=== PATIENT | female | born 1985 | race Caucasian/White ===

== ENCOUNTER 2016-09-09 06:31 | Emergency (ER) | payer BC, OTHER ==
[2016-09-09] MEDS ORDERED: Acetaminophen-Codeine 300-30mg TAB PO STA (06:55)
[2016-09-09] MEDS ORDERED: IBUPROFEN 600 MG TAB PO STA (06:56)
[2016-09-09] MEDS ORDERED: DEXAMETHASONE 4 MG TAB PO STA (07:28)
[2016-09-09] MEDS ORDERED: IPRATROPIUM-ALBUTEROL 3 ML NEB INHALATION STA (07:28)
[2016-09-09] MEDS ORDERED: cefTRIAXone 2,000 MG in SODIUM CHLORIDE 0.9% 100 ML IVPB STA (07:31)
[2016-09-09] MEDS ORDERED: HYDROmorphone 1 MG/ML 1 ML SYRINGE IVP STA (07:31)
[2016-09-09] MEDS ORDERED: ONDANSETRON 4 MG/2 ML VIAL IVP STA (07:31)
--- NOTE | 2016-09-09 07:40 | ED ---
URI HPI - General Chief Complaint: Upper Respiratory Infection Stated Complaint: SOB Time Seen by Provider: 09/09/16 07:17 Source: patient Mode of arrival: ambulatory Limitations: no limitations - History of Present Illness Initial Comments: [age] years old female feels like her lungs are burning for the last 4 days she has a fever she has a chills it hurts to take a deep breath has been coughing up phlegm. Otherwise pretty healthy no history of asthma or history of COPD and her headaches no neck stiffness does feel short winded but the last few days no abdominal pain no frequency urgency dysuria - Related Data Home Medications Medication Instructions Recorded Confirmed Multivitamins, Thera [Multivitamin 1 tab PO DAILY 09/09/16 09/09/16 (formulary)] Previous Rx's Medication Instructions Recorded Azithromycin [Zithromax Tri-Ender] 500 mg PO DAILY #3 tab 09/09/16 Oseltamivir [Tamiflu] 75 mg PO Q12HR #10 cap 09/09/16 oxyCODONE HCL/ACETAMINOPHEN 1 tab PO Q6HR PRN #12 tab 09/09/16 [Percocet 5-325 mg] predniSONE 50 mg PO DAILY #5 tab 09/09/16 Allergies Allergy/AdvReac Type Severity Reaction Status Date / Time No Known Allergies Allergy Verified 09/09/16 07:44 Review of Systems ROS Statement: Those systems with pertinent positive or pertinent negative responses have been documented in the HPI. ROS Other: All systems not noted in ROS Statement are negative. Past Medical History Past Medical History: GERD/Reflux Additional Past Medical History / Comment(s): ectopic History of Any Multi-Drug Resistant Organisms: None Reported Past Surgical History: Section, Tonsillectomy Additional Past Surgical History / Comment(s): laproscopic lysis of adhesions after her last delivery Past Anesthesia/Blood Transfusion Reactions: No Reported Reaction Past Psychological History: Anxiety, Depression Smoking Status: Former smoker Past Alcohol Use History: None Reported Past Drug Use History: None Reported - Past Family History Mother Family Medical History: No Reported History Father History Unknown: Yes Family Medical History: No Reported History General Exam - General Exam Comments Initial Comments: General: The patient is awake and alert, in no distress Skin: Skin is warm and dry and no rashes or lesions are noted. Eye: Pupils are equal, round and reactive to light, extra-ocular movements are intact; there is normal conjunctiva bilaterally. Ears, nose, mouth and throat: There are moist mucous membranes and no oral lesions. Neck: The neck is supple, there is no tenderness or JVD. Cardiovascular: There is a regular rate and rhythm. No murmur, rub or gallop is appreciated. Respiratory: To auscultation bilateral, poor air exchange bilaterally Gastrointestinal: Soft, non-distended, non-tender abdomen without masses or organomegaly noted. There is no rebound or guarding present. Bowel sounds are unremarkable. Back: There is no tenderness to palpation in the midline. There is no obvious deformity. Musculoskeletal: Normal ROM, no tenderness, There is no pedal edema. There is no calf tenderness or swelling. No cords were appreciated. Neurological: CN II-XII intact, Cranial nerves III through XII are intact. There are no obvious motor or sensory deficits. Coordination appears grossly intact. Speech is normal. Psychiatric: Cooperative, appropriate mood & affect, normal judgment. Limitations: no limitations Course Vital Signs 09/09/16 09/09/16 09/09/16 06:34 08:10 08:17 Temperature 100.8 F H Pulse Rate 98 100 100 Respiratory 20 Rate Blood Pressure 150/84 O2 Sat by Pulse 96 Oximetry 09/09/16 08:37 Temperature 98.3 F Pulse Rate 75 Respiratory 18 Rate Blood Pressure 122/64 O2 Sat by Pulse 96 Oximetry Patient was reassessed, CBC, d-dimer, comprehensive metabolic panel are negative chest x-rays negative as well but she is positive for influenza I suspect is a bronchitis on top of influenza B considering her clinical picture she will be gone home and Tamiflu 75 mg twice daily and Zithromax and prednisone 50 mg 1 tablet daily for next 5 days and also can give her Percocets a few of those for next 24 hours Medical Decision Making - Lab Data Result diagrams: 09/09/16 07:50 09/09/16 07:50 Lab Results 09/09/16 09/09/16 09/09/16 Range/Units 07:50 07:50 07:50 WBC 3.7 L (3.8-10.6) k/uL RBC 5.31 (3.80-5.40) m/uL Hgb 14.2 (11.4-16.0) gm/dL Hct 44.1 (34.0-46.0) % MCV 83.0 (80.0-100.0) fL MCH 26.8 (25.0-35.0) pg MCHC 32.3 (31.0-37.0) g/dL RDW 12.9 (11.5-15.5) % Plt Count 180 (150-450) k/uL Neutrophils % 68 % Lymphocytes % 23 % Monocytes % 6 % Eosinophils % 1 % Basophils % 0 % Neutrophils # 2.5 (1.3-7.7) k/uL Lymphocytes # 0.9 L (1.0-4.8) k/uL Monocytes # 0.2 (0-1.0) k/uL Eosinophils # 0.0 (0-0.7) k/uL Basophils # 0.0 (0-0.2) k/uL D-Dimer 0.49 (<0.60) mg/L FEU Sodium 141 (137-145) mmol/L Potassium 3.9 (3.5-5.1) mmol/L Chloride 106 (98-107) mmol/L Carbon Dioxide 23 (22-30) mmol/L Anion Gap 12 mmol/L BUN 9 (7-17) mg/dL Creatinine 0.71 (0.52-1.04) mg/dL Est GFR (MDRD) Af Amer >60 (>60 ml/min/1.73 sqM) Est GFR (MDRD) Non-Af >60 (>60 ml/min/1.73 sqM) Glucose 102 H (74-99) mg/dL Calcium 8.8 (8.4-10.2) mg/dL Influenza Type A RNA (Not Detectd) Influenza Type B (PCR) (Not Detectd) 09/09/16 Range/Units 07:50 WBC (3.8-10.6) k/uL RBC (3.80-5.40) m/uL Hgb (11.4-16.0) gm/dL Hct (34.0-46.0) % MCV (80.0-100.0) fL MCH (25.0-35.0) pg MCHC (31.0-37.0) g/dL RDW (11.5-15.5) % Plt Count (150-450) k/uL Neutrophils % % Lymphocytes % % Monocytes % % Eosinophils % % Basophils % % Neutrophils # (1.3-7.7) k/uL Lymphocytes # (1.0-4.8) k/uL Monocytes # (0-1.0) k/uL Eosinophils # (0-0.7) k/uL Basophils # (0-0.2) k/uL D-Dimer (<0.60) mg/L FEU Sodium (137-145) mmol/L Potassium (3.5-5.1) mmol/L Chloride (98-107) mmol/L Carbon Dioxide (22-30) mmol/L Anion Gap mmol/L BUN (7-17) mg/dL Creatinine (0.52-1.04) mg/dL Est GFR (MDRD) Af Amer (>60 ml/min/1.73 sqM) Est GFR (MDRD) Non-Af (>60 ml/min/1.73 sqM) Glucose (74-99) mg/dL Calcium (8.4-10.2) mg/dL Influenza Type A RNA Not Detected (Not Detectd) Influenza Type B (PCR) Detected H (Not Detectd) Disposition Clinical Impression: Pleuritic chest pain, Influenza B Disposition: HOME SELF-CARE Condition: Good Prescriptions: Azithromycin [Zithromax Tri-Ender] 500 mg PO DAILY #3 tab Oseltamivir [Tamiflu] 75 mg PO Q12HR #10 cap oxyCODONE HCL/ACETAMINOPHEN [Percocet 5-325 mg] 1 tab PO Q6HR PRN #12 tab PRN Reason: Pain predniSONE 50 mg PO DAILY #5 tab Referrals: Nonstaff,Physician [REFERRING] - 1-2 days
[2016-09-09 08:11] LABS: Basophils % (A) 0 %; CH 26.8; CHCM 32.4; Eosinophils % (A) 1 %; HCT 44.1 % (34.0-46.0); HDW 2.51; HGB 14.2 gm/dL (11.4-16.0); Luc # (Auto) 0.08; Luc % (Auto) 2; Lymphocytes # (A) 0.9 k/uL (1.0-4.8); Lymphocytes % (A) 23 %; MCH 26.8 pg (25.0-35.0); MCHC 32.3 g/dL (31.0-37.0); Monocytes # (A) 0.2 k/uL (0-1.0); Monocytes % (A) 6 %; Neutrophils # (A) 2.5 k/uL (1.3-7.7); Neutrophils % (A) 68 %; RBC 5.31 m/uL (3.80-5.40); RDW 12.9 % (11.5-15.5); WBC 3.7 k/uL (3.8-10.6); WBC (Perox) 3.19
[2016-09-09 08:15] LABS: Anion Gap 12 mmol/L; Blood Urea Nitrogen 9 mg/dL (7-17); Calcium 8.8 mg/dL (8.4-10.2); Carbon Dioxide 23 mmol/L (22-30); Chloride 106 mmol/L (98-107); Glucose 102 mg/dL (74-99); Non-African American GFR(MDRD) >60 (>60 ml/min/1.73 sqM); Potassium 3.9 mmol/L (3.5-5.1); Sodium 141 mmol/L (137-145)
[2016-09-09] MEDS ORDERED: OSELTAMIVIR 75 MG CAP PO STA (08:30)
--- NOTE | 2016-09-09 08:35 | XR ---
EXAMINATION TYPE: XR chest 2V DATE OF EXAM ORDERED: 09/09/2016 8:26 AM HISTORY: Pneumonia. REFERENCE: None. FINDINGS: The lungs are clear. Pleural spaces are clear. Heart size is normal. IMPRESSION: NORMAL CHEST.
[2016-09-09 08:39] VITALS: BP 122/64; PULSE 75; RESP 18; TEMP 98.3
== END 2016-09-09 09:04 | disposition home or self-care (01) ==
LOC: EC 06:31
DX: J10.1 Influenza due to other identified influenza virus with other respiratory manifestations (principal); Z87.891 Personal history of nicotine dependence; Z79.899 Other long term (current) drug therapy; Z90.89 Acquired absence of other organs
CPT/HCPCS: 36415; 94640; 85379; 80048; 85025; 87502; 71020; 99284; 96365; 96375 ×2; J8540; J2405; J0696; J1170

== ENCOUNTER 2016-10-24 20:18 | Emergency (ER) | payer BC, OTHER ==
[2016-10-24 20:22] VITALS: RESP 18
[2016-10-24] MEDS ORDERED: SODIUM CHLORIDE 0.9% 1,000 ML IV STA (20:37)
[2016-10-24] MEDS ORDERED: METOCLOPRAMIDE 5 MG/ML 2 ML VIAL IVP STA (20:37)
--- NOTE | 2016-10-24 20:42 | ED ---
General Adult HPI - General Chief complaint: Nausea/Vomiting/Diarrhea Stated complaint: 7 wks preg. Nausea/Vomiting Time Seen by Provider: 10/24/16 20:33 Source: patient, RN notes reviewed Mode of arrival: ambulatory Limitations: no limitations - History of Present Illness Initial comments: 31-year-old female presents to the emergency department with a chief complaint of nausea vomiting and . Patient states that she is about 7 weeks . Patient states that she is a . Patient states that she constantly has nausea and vomiting in . Patient states she is here because her doctor prescribed her Zofran but it was not helping her so she thought that she should be seen. Patient states she hasn't had any other symptoms with this. Patient denies any vaginal bleeding or abdominal pain. Patient states she was concerned due to the continued vomiting and not been able to keep much down so she thought she could use some hydration. Patient denies any recent fever, chills, shortness of breath, chest pain, back pain, abdominal pain, numbness or tingling, dysuria or hematuria, constipation or diarrhea, headaches or visual changes, or any other current symptoms. - Related Data Home Medications Medication Instructions Recorded Confirmed Ondansetron HCl [Zofran] 8 mg PO Q4H PRN 10/24/16 10/24/16 Ondansetron [Zofran] 4 mg PO Q4H PRN 10/24/16 10/24/16 [id number] Acid 1 cap PO DAILY 10/24/16 10/24/16 [-U Capsule (formulary)] Ranitidine HCl 150 mg PO DAILY 10/24/16 10/24/16 Allergies Allergy/AdvReac Type Severity Reaction Status Date / Time No Known Allergies Allergy Verified 10/24/16 20:46 Review of Systems ROS Statement: Those systems with pertinent positive or pertinent negative responses have been documented in the HPI. ROS Other: All systems not noted in ROS Statement are negative. Past Medical History Past Medical History: GERD/Reflux Additional Past Medical History / Comment(s): ectopic History of Any Multi-Drug Resistant Organisms: None Reported Past Surgical History: Section, Tonsillectomy Additional Past Surgical History / Comment(s): laproscopic lysis of adhesions after her last delivery Past Anesthesia/Blood Transfusion Reactions: No Reported Reaction Past Psychological History: Anxiety, Depression Smoking Status: Former smoker Past Alcohol Use History: None Reported Past Drug Use History: None Reported - Past Family History Mother Family Medical History: No Reported History Father History Unknown: Yes Family Medical History: No Reported History General Exam - General Exam Comments Initial Comments: General: The patient is awake and alert, in no distress, and does not appear acutely ill. Eye: Pupils are equal, round. Ears, nose, mouth and throat: There are moist mucous membranes and no oral lesions. Neck: The neck is supple, there is no tenderness. Cardiovascular: There is a regular rate and rhythm. No murmur, rub or gallop is appreciated. Respiratory: Lungs are clear to auscultation, respirations are non-labored, breath sounds are equal. No wheezes, stridor, rales, or rhonchi. Gastrointestinal: Soft, non-distended, non-tender abdomen without masses or organomegaly noted. There is no rebound or guarding present. No CVA tenderness. Bowel sounds are unremarkable. Back: There is no tenderness to palpation in the midline. There is no obvious deformity. No rashes noted. Musculoskeletal: Normal ROM, no tenderness, There is no pedal edema. There is no calf tenderness or swelling. Sensation intact. Pulses equal bilaterally 2+. Neurological: CN II-XII intact, There are no obvious motor or sensory deficits. Coordination appears grossly intact. Speech is normal. Skin: Skin is warm and dry and no rashes or lesions are noted. Psychiatric: Cooperative, appropriate mood & affect, normal judgment. Limitations: no limitations Course Vital Signs 10/24/16 20:20 Temperature 98 F Pulse Rate 67 Respiratory 18 Rate Blood Pressure 120/82 O2 Sat by Pulse 99 Oximetry - Reevaluation(s) Reevaluation #1: 10/24/16 21:45 at this time patient states that she is feeling much better. At this time she is requesting discharge home. Medical Decision Making - Medical Decision Making 31-year-old male presents emergency Department chief complaint of nausea vomiting in .this patient's lab work is reviewed. As well as nausea and acute processes. We did give the patient fluids and nausea medication as she is feeling better. 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 We discussed all the patient's questions. She stated that she understood and is in agreement the plan. All questions have been answered. She will be discharged home. - Lab Data Result diagrams: 10/24/16 20:30 10/24/16 20:30 Lab Results 10/24/16 10/24/16 10/24/16 Range/Units 20:30 20:30 21:01 WBC 10.7 H (3.8-10.6) k/uL RBC 5.15 (3.80-5.40) m/uL Hgb 13.7 (11.4-16.0) gm/dL Hct 42.5 (34.0-46.0) % MCV 82.6 (80.0-100.0) fL MCH 26.6 (25.0-35.0) pg MCHC 32.2 (31.0-37.0) g/dL RDW 13.3 (11.5-15.5) % Plt Count 286 (150-450) k/uL Neutrophils % 60 % Lymphocytes % 32 % Monocytes % 4 % Eosinophils % 1 % Basophils % 1 % Neutrophils # 6.4 (1.3-7.7) k/uL Lymphocytes # 3.5 (1.0-4.8) k/uL Monocytes # 0.4 (0-1.0) k/uL Eosinophils # 0.1 (0-0.7) k/uL Basophils # 0.1 (0-0.2) k/uL Sodium 137 (137-145) mmol/L Potassium 4.2 (3.5-5.1) mmol/L Chloride 104 (98-107) mmol/L Carbon Dioxide 25 (22-30) mmol/L Anion Gap 8 mmol/L BUN 10 (7-17) mg/dL Creatinine 0.62 (0.52-1.04) mg/dL Est GFR (MDRD) Af Amer >60 (>60 ml/min/1.73 sqM) Est GFR (MDRD) Non-Af >60 (>60 ml/min/1.73 sqM) Glucose 108 H (74-99) mg/dL Calcium 9.2 (8.4-10.2) mg/dL Total Bilirubin 0.5 (0.2-1.3) mg/dL AST 16 (14-36) U/L ALT 28 (9-52) U/L Alkaline Phosphatase 46 (38-126) U/L Total Protein 6.9 (6.3-8.2) g/dL Albumin 3.9 (3.5-5.0) g/dL Amylase 62 (30-110) U/L Lipase 147 (23-300) U/L Urine Color Light Yellow Urine Appearance Cloudy H (Clear) Urine pH 7.0 (5.0-8.0) Ur Specific [place] 1.009 (1.001-1.035) Urine Protein Negative (Negative) Urine Glucose (UA) Negative (Negative) Urine Ketones Negative (Negative) Urine Blood Negative (Negative) Urine Nitrite Negative (Negative) Urine Bilirubin Negative (Negative) Urine Urobilinogen <2.0 (<2.0) mg/dL Ur Leukocyte Esterase Negative (Negative) Urine WBC 1 (0-5) /hpf Ur Squamous Epith Cells 1 (0-4) /hpf Amorphous Sediment Rare H (None) /hpf Disposition Clinical Impression: Hyperemesis gravidarum Disposition: HOME SELF-CARE Condition: Stable Instructions: Hyperemesis Gravidarum (ED) Additional Instructions: Please use medication as discussed. Please follow up with family doctor if symptoms have not improved over the next two days. Please return to the emergency room if your symptoms increase or worsen or for any other concerns. Referrals: Geraldine Muniz DO [Primary Care Provider] - 1-2 days Time of Disposition: 21:45
[2016-10-24 20:53] LABS: Basophils # (A) 0.1 k/uL (0-0.2); Basophils % (A) 1 %; CH 27.1; Eosinophils # (A) 0.1 k/uL (0-0.7); Eosinophils % (A) 1 %; HCT 42.5 % (34.0-46.0); HDW 2.44; HGB 13.7 gm/dL (11.4-16.0); Luc # (Auto) 0.18; Luc % (Auto) 2; Lymphocytes # (A) 3.5 k/uL (1.0-4.8); Lymphocytes % (A) 32 %; MCH 26.6 pg (25.0-35.0); MCHC 32.2 g/dL (31.0-37.0); MCV 82.6 fL (80.0-100.0); Mean Platelet Volume 6.7; Monocytes # (A) 0.4 k/uL (0-1.0); Monocytes % (A) 4 %; Neutrophils # (A) 6.4 k/uL (1.3-7.7); Neutrophils % (A) 60 %; RBC 5.15 m/uL (3.80-5.40); RDW 13.3 % (11.5-15.5); WBC 10.7 k/uL (3.8-10.6); WBC (Perox) 10.58
[2016-10-24 21:03] LABS: ALT 28 U/L (9-52); AST 16 U/L (14-36); Alkaline Phosphatase 46 U/L (38-126); Amylase 62 U/L (30-110); Anion Gap 8 mmol/L; Blood Urea Nitrogen 10 mg/dL (7-17); Calcium 9.2 mg/dL (8.4-10.2); Carbon Dioxide 25 mmol/L (22-30); Chloride 104 mmol/L (98-107); Glucose 108 mg/dL (74-99); Non-African American GFR(MDRD) >60 (>60 ml/min/1.73 sqM); Potassium 4.2 mmol/L (3.5-5.1); Sodium 137 mmol/L (137-145); Total Bilirubin 0.5 mg/dL (0.2-1.3); Total Protein 6.9 g/dL (6.3-8.2)
[2016-10-24 21:28] LABS: Amorphous Sediment,Urine Rare /hpf; Appearance,Urine Cloudy (Clear); Bilirubin,Urine Negative (Negative); Glucose,Urine (UA) Negative (Negative); Ketones,Urine Negative (Negative); Leukocyte Esterase,Urine Negative (Negative); Nitrite,Urine Negative (Negative); Particle Count 15076; Protein,Urine Negative (Negative); Specific Gravity,Urine 1.009 (1.001-1.035); Squamous Epithelial Cell,Urine 1 /hpf (0-4); UA Billing (MACRO vs. MICRO) MICRO; Urobilinogen,Urine <2.0 mg/dL (<2.0); WBC,Urine 1 /hpf (0-5)
[2016-10-24 21:54] VITALS: BP 111/70; PULSE 78; TEMP 97.8
[2016-10-24 22:36] LABS: HCG,Quantitative Serum 68710.3 mIU/mL
== END 2016-10-24 21:53 | disposition home or self-care (01) ==
LOC: EC 20:18
DX: O21.0 Mild hyperemesis gravidarum (principal); O99.611 Diseases of the digestive system complicating pregnancy, first trimester; K21.9 Gastro-esophageal reflux disease without esophagitis; Z87.891 Personal history of nicotine dependence; Z79.899 Other long term (current) drug therapy; Z3A.01 Less than 8 weeks gestation of pregnancy
CPT/HCPCS: 36415; 80053; 82150; 83690; 85025; 81001; 84702; 87086; 99284; 96374; 96361; J2765

== ENCOUNTER 2016-12-11 21:33 | Emergency (ER) | payer BC ==
[2016-12-11] MEDS ORDERED: METOCLOPRAMIDE 5 MG/ML 2 ML VIAL IVP STA (21:58)
[2016-12-11] MEDS ORDERED: SODIUM CHLORIDE 0.9% 1,000 ML IV ONE ×2 (21:58→23:16)
--- NOTE | 2016-12-11 22:02 | ED ---
General Adult HPI - General Chief complaint: Abdominal Pain Stated complaint: Vomiting Time Seen by Provider: 12/11/16 21:46 Source: patient, RN notes reviewed Mode of arrival: ambulatory Limitations: no limitations - History of Present Illness Initial comments: Patient is a 31-year-old female presents to the emergency room for evaluation nausea, vomiting and diarrhea. Patient states she's been vomiting for the past 2 days. Patient states she is about 14 weeks . Patient states she follows up with Dr. Jones. Patient states she has a confirmed IUP by ultrasound. Patient states she is vomiting every 15 minutes. Patient states is also having diarrhea. Patient states that her daughter recently had the stomach flu. Patient states she is having abdominal pain diffusely from forceful vomiting. Patient states she's having a headache. Patient denies chest pain or shortness of breath. Patient denies fevers or chills. Patient denies vaginal bleeding. - Related Data Home Medications Medication Instructions Recorded Confirmed Ondansetron [Zofran] 4 mg PO Q6HR PRN 10/24/16 12/11/16 Ranitidine HCl 150 mg PO BID 10/24/16 12/11/16 Metoclopramide HCl [Reglan] 10 mg PO Q6H 12/11/16 12/11/16 Previous Rx's Medication Instructions Recorded Metoclopramide HCl [Reglan] 5 mg PO TID PRN #12 tablet 12/12/16 Allergies Allergy/AdvReac Type Severity Reaction Status Date / Time No Known Allergies Allergy Verified 12/11/16 22:40 Review of Systems ROS Statement: Those systems with pertinent positive or pertinent negative responses have been documented in the HPI. ROS Other: All systems not noted in ROS Statement are negative. Past Medical History Past Medical History: GERD/Reflux Additional Past Medical History / Comment(s): ectopic History of Any Multi-Drug Resistant Organisms: None Reported Past Surgical History: Section, Tonsillectomy Additional Past Surgical History / Comment(s): laproscopic lysis of adhesions after her last delivery Past Anesthesia/Blood Transfusion Reactions: No Reported Reaction Past Psychological History: Anxiety, Depression Smoking Status: Former smoker Past Alcohol Use History: None Reported Past Drug Use History: None Reported - Past Family History Mother Family Medical History: No Reported History Father History Unknown: Yes Family Medical History: No Reported History General Exam - General Exam Comments Initial Comments: Sitting in exam room, actively vomiting Limitations: no limitations General appearance: alert, anxious Head exam: Present: atraumatic, normocephalic, normal inspection Eye exam: Present: normal appearance ENT exam: Present: normal exam Neck exam: Present: normal inspection Respiratory exam: Present: normal lung sounds bilaterally. Absent: respiratory distress Cardiovascular Exam: Present: regular rate, normal rhythm, normal heart sounds GI/Abdominal exam: Present: soft, tenderness (upper epigastric), normal bowel sounds. Absent: distended, guarding, rebound, rigid Extremities exam: Present: normal inspection Back exam: Present: normal inspection Neurological exam: Present: alert, oriented X3, CN II-XII intact, normal gait Psychiatric exam: Present: normal affect, normal mood Skin exam: Present: warm, dry, intact, normal color. Absent: rash Course Vital Signs 12/11/16 12/11/16 12/12/16 21:35 22:11 00:21 Temperature 97.4 F L 97.9 F Pulse Rate 94 77 Respiratory 18 20 18 Rate Blood Pressure 128/74 93/52 O2 Sat by Pulse 96 99 100 Oximetry 12/12/16 00:34 Temperature Pulse Rate Respiratory Rate Blood Pressure 100/53 O2 Sat by Pulse Oximetry Medical Decision Making - Medical Decision Making Patient is 31-year-old female since emergency room for lotion of nausea, vomiting diarrhea. Patient states she is 14 weeks . Patient actually vomiting during examination. Patient very anxious. Patient given fluids and Reglan. Vomiting has subsided. Patient then given Pepcid, pyridoxine and Maalox. Patient states she is feeling a lot better. Patient denies any significant abdominal discomfort currently. Patient wishes to be discharged home. Patient states she has an appointment with her primary care provider tomorrow. Advised patient to return for worsening symptoms. Patient states she understands everything that was discussed with her. Case discussed with Dr. Sherman. - Lab Data Result diagrams: 12/11/16 22:10 12/11/16 22:10 Lab Results 12/11/16 12/11/16 12/11/16 Range/Units 22:10 22:10 22:25 WBC 14.0 H (3.8-10.6) k/uL RBC 5.16 (3.80-5.40) m/uL Hgb 13.9 (11.4-16.0) gm/dL Hct 41.9 (34.0-46.0) % MCV 81.3 (80.0-100.0) fL MCH 27.0 (25.0-35.0) pg MCHC 33.2 (31.0-37.0) g/dL RDW 13.3 (11.5-15.5) % Plt Count 252 (150-450) k/uL Neutrophils % 80 % Lymphocytes % 16 % Monocytes % 3 % Eosinophils % 1 % Basophils % 0 % Neutrophils # 11.2 H (1.3-7.7) k/uL Lymphocytes # 2.2 (1.0-4.8) k/uL Monocytes # 0.4 (0-1.0) k/uL Eosinophils # 0.1 (0-0.7) k/uL Basophils # 0.0 (0-0.2) k/uL Sodium 139 (137-145) mmol/L Potassium 3.8 (3.5-5.1) mmol/L Chloride 107 (98-107) mmol/L Carbon Dioxide 17 L (22-30) mmol/L Anion Gap 15 mmol/L BUN 9 (7-17) mg/dL Creatinine 0.55 (0.52-1.04) mg/dL Est GFR (MDRD) Af Amer >60 (>60 ml/min/1.73 sqM) Est GFR (MDRD) Non-Af >60 (>60 ml/min/1.73 sqM) Glucose 103 H (74-99) mg/dL Calcium 9.3 (8.4-10.2) mg/dL Magnesium 1.8 (1.6-2.3) mg/dL Total Bilirubin 0.7 (0.2-1.3) mg/dL AST 19 (14-36) U/L ALT 24 (9-52) U/L Alkaline Phosphatase 63 (38-126) U/L Total Protein 7.1 (6.3-8.2) g/dL Albumin 4.1 (3.5-5.0) g/dL Urine Color Yellow Urine Appearance Cloudy H (Clear) Urine pH 6.0 (5.0-8.0) Ur Specific [place] 1.023 (1.001-1.035) Urine Protein 1+ H (Negative) Urine Glucose (UA) Negative (Negative) Urine Ketones 4+ H (Negative) Urine Blood Negative (Negative) Urine Nitrite Negative (Negative) Urine Bilirubin Negative (Negative) Urine Urobilinogen 2.0 (<2.0) mg/dL Ur Leukocyte Esterase Negative (Negative) Urine WBC 8 H (0-5) /hpf Ur Squamous Epith Cells 6 H (0-4) /hpf Amorphous Sediment Rare H (None) /hpf Urine Bacteria Rare H (None) /hpf Hyaline Casts 3 H (0-2) /lpf Urine Mucus Many H (None) /hpf Disposition Clinical Impression: Nausea vomiting and diarrhea Disposition: HOME SELF-CARE Condition: Good Instructions: Nausea and Vomiting in (ED) Additional Instructions: Clear liquid diet for the next 2-3 days. Take Reglan as needed for nausea. Please follow-up with primary care provider or MEDICAL EQUIPMENT TECHNICIAN in 24-48 hours. If any new symptom arises or symptoms worsen, return to ER as soon as possible. Prescriptions: Metoclopramide HCl [Reglan] 5 mg PO TID PRN #12 tablet PRN Reason: Nausea Referrals: Geraldine Muniz DO [Primary Care Provider] - 1-2 days Time of Disposition: 00:27
[2016-12-11] MEDS ORDERED: FAMOTIDINE 20 MG/2 ML VIAL IV STA (22:13)
[2016-12-11 22:28] LABS: Basophils % (A) 0 %; CH 27.3; CHCM 33.7; Eosinophils # (A) 0.1 k/uL (0-0.7); Eosinophils % (A) 1 %; HCT 41.9 % (34.0-46.0); HDW 2.53; HGB 13.9 gm/dL (11.4-16.0); Luc # (Auto) 0.12; Luc % (Auto) 1; Lymphocytes # (A) 2.2 k/uL (1.0-4.8); Lymphocytes % (A) 16 %; MCHC 33.2 g/dL (31.0-37.0); MCV 81.3 fL (80.0-100.0); Mean Platelet Volume 7.3; Monocytes # (A) 0.4 k/uL (0-1.0); Monocytes % (A) 3 %; Neutrophils # (A) 11.2 k/uL (1.3-7.7); Neutrophils % (A) 80 %; RBC 5.16 m/uL (3.80-5.40); RDW 13.3 % (11.5-15.5); WBC (Perox) 13.31
[2016-12-11 22:37] LABS: ALT 24 U/L (9-52); AST 19 U/L (14-36); Alkaline Phosphatase 63 U/L (38-126); Anion Gap 15 mmol/L; Blood Urea Nitrogen 9 mg/dL (7-17); Calcium 9.3 mg/dL (8.4-10.2); Carbon Dioxide 17 mmol/L (22-30); Chloride 107 mmol/L (98-107); Glucose 103 mg/dL (74-99); Magnesium 1.8 mg/dL (1.6-2.3); Non-African American GFR(MDRD) >60 (>60 ml/min/1.73 sqM); Potassium 3.8 mmol/L (3.5-5.1); Sodium 139 mmol/L (137-145); Total Bilirubin 0.7 mg/dL (0.2-1.3); Total Protein 7.1 g/dL (6.3-8.2)
[2016-12-11 22:40] LABS: Amorphous Sediment,Urine Rare /hpf; Appearance,Urine Cloudy (Clear); Bacteria,Urine Rare /hpf; Bilirubin,Urine Negative (Negative); Glucose,Urine (UA) Negative (Negative); Ketones,Urine 4+ (Negative); Leukocyte Esterase,Urine Negative (Negative); Mucus,Urine Many /hpf; Nitrite,Urine Negative (Negative); Particle Count 13113; Protein,Urine 1+ (Negative); Specific Gravity,Urine 1.023 (1.001-1.035); Squamous Epithelial Cell,Urine 6 /hpf (0-4); UA Billing (MACRO vs. MICRO) MICRO; WBC,Urine 8 /hpf (0-5)
[2016-12-11] MEDS ORDERED: PYRIDOXINE 100 MG/ML 1 ML VIAL IVP STA (23:15)
[2016-12-11] MEDS ORDERED: MAG HYDROX/AL HYDROX/SIMETH 30 ML CUP PO STA (23:16)
[2016-12-12 00:22] VITALS: PULSE 77; RESP 18; TEMP 97.9
[2016-12-12 00:47] VITALS: BP 100/53
== END 2016-12-12 00:35 | disposition home or self-care (01) ==
LOC: EC 21:33
DX: O21.0 Mild hyperemesis gravidarum (principal); O99.89 Other specified diseases and conditions complicating pregnancy, childbirth and the puerperium; R19.7 Diarrhea, unspecified; R10.13 Epigastric pain; O99.612 Diseases of the digestive system complicating pregnancy, second trimester; K21.9 Gastro-esophageal reflux disease without esophagitis; Z98.890 Other specified postprocedural states; Z87.891 Personal history of nicotine dependence; Z79.899 Other long term (current) drug therapy; Z3A.14 14 weeks gestation of pregnancy
CPT/HCPCS: 99284; 96374; 96375 ×2; 96361 ×2; 36415; 80053; 83735; 85025; 81001; J3415; J2765

== ENCOUNTER → 2016-12-12 | Outpatient (CLI) | payer BC ==
[2016-12-12 14:51] LABS: CH 26.8; CHCM 33.3; HCT 36.1 % (34.0-46.0); HDW 2.58; HGB 12.6 gm/dL (11.4-16.0); MCH 28.3 pg (25.0-35.0); MCV 80.9 fL (80.0-100.0); Mean Platelet Volume 7.3; RBC 4.46 m/uL (3.80-5.40); RDW 13.4 % (11.5-15.5)
[2016-12-12 15:02] LABS: Glucose 94 mg/dL (74-99); Non-African American GFR(MDRD) >60 (>60 ml/min/1.73 sqM)
[2016-12-12 15:33] LABS: Hepatitis B Surface Ag Index 0.05
[2016-12-12 22:43] LABS: Treponemal Ab Non-Reactive (Non-Reactive)
[2016-12-13 04:54] LABS: Toxoplasma Antibody (IgG) <3.0 IU/mL (<7.2)
== END | disposition home or self-care (01) ==
LOC: LABWHC1 14:15
PROVIDERS: ATTEND Obstetrics & Gynecology
DX: Z34.82 Encounter for supervision of other normal pregnancy, second trimester (principal)
CPT/HCPCS: 36415; 82565; 82947; 85027; 86762; 86777; 86778; 86780; 86850; 86900; 86901; 87340; 87390

== ENCOUNTER → 2017-01-07 | Outpatient (CLI) | payer BC ==
[2017-01-08 09:23] LABS: Alpha Fetoprotein 25.1 ng/mL; Alpha Fetoprotein (M.O.M) 0.72 (Negative); B-HCG (M.O.M.) 0.82; Gestational Age (days) 0; Inhibin A (M.O.M.) 1.14; Interpretation SeeBelow; Maternal Age at EDD (Yrs) 32; Smoker No; Unconjugated Estriol (M.O.M.) 1.11
== END | disposition home or self-care (01) ==
LOC: LABWHC1 16:23
PROVIDERS: ATTEND Obstetrics & Gynecology
DX: Z34.82 Encounter for supervision of other normal pregnancy, second trimester (principal)
CPT/HCPCS: 36415; 82105; 82677; 84702; 86336

== ENCOUNTER → 2017-02-18 | Outpatient (CLI) | payer BC ==
[2017-02-18 12:29] LABS: CH 27.2; CHCM 32.5; HCT 37.2 % (34.0-46.0); HDW 2.57; HGB 12.7 gm/dL (11.4-16.0); MCH 28.8 pg (25.0-35.0); MCHC 34.3 g/dL (31.0-37.0); MCV 84.2 fL (80.0-100.0); RBC 4.42 m/uL (3.80-5.40); WBC 12.7 k/uL (3.8-10.6)
== END | disposition home or self-care (01) ==
LOC: LABWHC1 10:56
PROVIDERS: ATTEND Obstetrics & Gynecology
DX: Z34.82 Encounter for supervision of other normal pregnancy, second trimester (principal); Z3A.00 Weeks of gestation of pregnancy not specified
CPT/HCPCS: 36415; 82950; 85027; 86850